=== PATIENT | female | born 1970 | race Hispanic/Latino ===

== ENCOUNTER 2017-03-12 10:37 | Day surgery (SDC) | payer OTHER, BC ==
[2017-03-12 10:50] VITALS: BMI 31.1
[2017-03-12 11:09] LABS: MEAN CELL VOLUME 90.1 fl (81.0-99.0); MEAN CORPUSCULAR HEMOGLOBIN 29.5 pg (27.0-31.0); MEAN CORPUSCULAR HGB CONC 32.7 g/dL (33.0-37.0); RED CELL DISTRIBUTION WIDTH 13.5 % (11.5-14.5); WHITE BLOOD COUNT 5.9 K/uL (4.8-10.8)
[2017-03-12] MEDS ORDERED: Strong Iodine Topical Sol. 5%-10% ONE (14:52)
[2017-03-12] MEDS ORDERED: Ferric Subsulfate Sol(60 mL) ONE (14:52)
[2017-03-12] MEDS ORDERED: Propofol 10 mg/ml Inj (20 ML) ONE (14:53)
[2017-03-12] MEDS ORDERED: Lidocaine 4% (Laryng-O-Jet) Kit MM ONE (14:53)
[2017-03-12] MEDS ORDERED: Succinylcholine 200 mg/10 ml Inj IV ONE (14:53)
[2017-03-12] MEDS ORDERED: Lactated Ringer's 1,000 ML IV ONE ×2 (15:13→17:15)
[2017-03-12] MEDS ORDERED: Midazolam 2 MG/2 ML VIAL ONE (15:16)
[2017-03-12] MEDS ORDERED: Dexamethasone 4 mg/1 ml ONE (15:24)
[2017-03-12] MEDS ORDERED: HYDROmorphone 0.5 mg/0.5 ml ISec IVP PRN (16:13)
[2017-03-12] MEDS ORDERED: Lactated Ringer's 1,000 ML IV SCH (16:15)
[2017-03-12 18:32] VITALS: BP 105/81; PULSE 71; RESP 18; TEMP 98; O2SAT 95
--- NOTE | 2017-04-16 17:33 | OP ---
PROCEDURE DATE: 03/12/2017 SURGEON: Reuben Vallejo MD PREOPERATIVE DIAGNOSIS: Uterine polyp versus fibroid. POSTOPERATIVE DIAGNOSIS: Uterine polyp versus fibroid. PROCEDURE PERFORMED: Hysteroscopic resection of endometrial polyp. TYPE OF ANESTHESIA: General endotracheal. COMPLICATIONS: None. INDICATION FOR THE PROCEDURE: This is a patient who is 46 years old with history of myomectomy. 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 This could have been either a polyp or a fibroid. She was referred to [facility] for treatment of the case. She was counseled prior to the surgery and taken to the OR. She signed the consent. DESCRIPTION OF PROCEDURE: After adequate anesthesia was obtained, the patient was placed in a dorsal lithotomy position. She was prepped and draped. The surgeons were gowned and gloved. At this point, attention was in the vaginal area where after emptying the bladder, anterior lip of the cervix was grasped. The cervix was dilated and a hysteroscope was inserted into the vagina. A resectoscope was then inserted. There appeared to be an intracavitary defect in the posterior wall of the uterus. This was identified utilizing the mechanical resectoscope. The area was completely excised until the cavity was completely clear. There appeared to be no other areas of malignancy or any other lesions in the uterus. At this point he was checked for hemostasis and appeared to be excellent. The instruments were removed. There appeared to be no bleeding. The tenaculum was removed. The patient was woken up and taken to recovery room in excellent condition. Reuben Vallejo MD
== END 2017-03-12 18:38 | disposition home or self-care (01) ==
LOC: H.OPSURG 10:37
PROVIDERS: ATTEND Obstetrics & Gynecology Reproductive Endocrinology
DX: N84.0 Polyp of corpus uteri (principal); E03.9 Hypothyroidism, unspecified
CPT/HCPCS: 36415; 58558; 85027; 86850; 86900; 88305; J0330; J0690; J1100; J1885; J2001; J2250; J2405; J2704; J2765; J3010; J7030; J7120

== ENCOUNTER 2017-09-29 08:42 | Day surgery (SDC) | payer OTHER, BC ==
[2017-09-28 10:24] VITALS: BMI 33.8
[2017-09-29 09:39] VITALS: RESP 18
[2017-09-29 09:58] LABS: HEMOGLOBIN 13.2 g/dL (12.0-16.0); MEAN CELL VOLUME 92.1 fl (81.0-99.0); MEAN CORPUSCULAR HEMOGLOBIN 31.1 pg (27.0-31.0); MEAN CORPUSCULAR HGB CONC 33.8 g/dL (33.0-37.0); RBC 4.24 Mil/uL (3.80-5.20); RED CELL DISTRIBUTION WIDTH 14.3 % (11.5-14.5)
[2017-09-29 10:00] LABS: WHITE BLOOD COUNT 9.4 K/uL (4.8-10.8)
[2017-09-29] MEDS ORDERED: Oxytocin 20 units in LR 0 ML IV ONE (10:43)
[2017-09-29] MEDS ORDERED: Propofol 10 mg/ml Inj (20 ML) ONE ×2 (11:14→11:15)
[2017-09-29] MEDS ORDERED: Lactated Ringer's 1,000 ML IV ONE (11:20)
[2017-09-29] MEDS ORDERED: Midazolam 2 MG/2 ML VIAL ONE (11:24)
[2017-09-29] MEDS ORDERED: Silver Nitrate Topical - Stick ONE (11:32)
[2017-09-29] MEDS ORDERED: Lactated Ringer's 1,000 ML IV SCH (12:00)
[2017-09-29 14:08] VITALS: BP 125/74; PULSE 74; TEMP 99.4; O2SAT 96
--- NOTE | 2017-10-02 17:25 | OP ---
PROCEDURE DATE: 09/29/2017 PREOPERATIVE DIAGNOSIS: Missed . POSTOPERATIVE DIAGNOSIS: Missed . PROCEDURE PERFORMED: Suction dilatation and curettage. SURGEON: Dr. Reuben Vallejo. TYPE OF ANESTHESIA: IV sedation. ANESTHESIA ADMINISTERED BY: Dr. Mo. COMPLICATIONS: None. SPECIMEN: Samples sent to pathology for both regular pathology and genetic testing with microarray. DESCRIPTION OF PROCEDURE: After adequate anesthesia was obtained, the patient was placed in dorsal lithotomy position with great care not to hyperextend her hips. She was prepped and draped. Surgeon got in glove and examination under anesthesia was performed revealing an 8-week size uterus. The and speculum was placed in the vagina and the anterior lip of the cervix was grasped. The cervix was gently dilated and an 8 suction curette was inserted into the uterine cavity. Suction was applied and abundant products of conception were obtained. Given the fact that products of conception came out very easily, there was no necessity to perform a sharp curetting. The tenaculum was removed. Cervix was dry. There was no leakage. The patient was then awaken up and taken to the recovery in excellent condition. Please note, the patient received prophylactic antibiotics. Reuben Vallejo MD
== END 2017-09-29 14:34 | disposition home or self-care (01) ==
LOC: H.OPSURG 08:42
PROVIDERS: ATTEND Obstetrics & Gynecology Reproductive Endocrinology
DX: O02.1 Missed abortion (principal); E03.9 Hypothyroidism, unspecified
CPT/HCPCS: 36415; 59820; 85027; 86850; 86900; 88305; J0690; J2001; J2210; J2250; J2270; J2704; J3010; J7030; J7120

== ENCOUNTER 2018-10-05 09:48 | Day surgery (SDC) | payer OTHER, BC ==
[2018-10-01 15:29] VITALS: BMI 32.9
[2018-10-05 10:42] LABS: EOS # 0.1 K/uL (0.0-0.7); EOS % 2.3 % (0.0-4.0); HEMOGLOBIN 14.6 g/dL (12.0-16.0); LYMPH # 1.3 K/uL (1.0-4.3); LYMPH % 28.3 % (20.0-40.0); MEAN CELL VOLUME 89.3 fl (81.0-99.0); MEAN CORPUSCULAR HEMOGLOBIN 30.1 pg (27.0-31.0); MEAN CORPUSCULAR HGB CONC 33.7 g/dL (33.0-37.0); MEAN PLATELET VOLUME 9.5 fl (7.2-11.7); MONO # 0.4 K/uL (0.0-0.8); MONO % 7.8 % (0.0-10.0); NEUT # 2.7 K/uL (1.8-7.0); NEUT % 60.6 % (50.0-75.0); RBC 4.87 Mil/uL (3.80-5.20); RED CELL DISTRIBUTION WIDTH 13.2 % (11.5-14.5); WHITE BLOOD COUNT 4.5 K/uL (4.8-10.8)
[2018-10-05] MEDS ORDERED: Lactated Ringer's 1,000 ML IV ONE (10:44)
[2018-10-05] MEDS ORDERED: Rocuronium 10 mg/ml (5 ml) ONE (11:11)
[2018-10-05] MEDS ORDERED: Midazolam 2 MG/2 ML VIAL ONE (11:11)
[2018-10-05] MEDS ORDERED: Lidocaine 4% (Laryng-O-Jet) Kit MM ONE (11:11)
[2018-10-05] MEDS ORDERED: Succinylcholine Chloride 20 mg/ml Syr (5 ml) IV ONE (11:11)
[2018-10-05] MEDS ORDERED: Propofol 10 mg/ml Inj (20 ML) ONE (11:11)
[2018-10-05] MEDS ORDERED: ePHEDrine 50 mg/ml Inj ONE (11:11)
[2018-10-05] MEDS ORDERED: Silver Nitrate Topical - Stick ONE (11:22)
[2018-10-05] MEDS ORDERED: Dexamethasone 4 mg/1 ml ONE (12:17)
[2018-10-05] MEDS ORDERED: HYDROmorphone 0.5 mg/0.5 ml ISec IVP PRN (12:30)
[2018-10-05] MEDS ORDERED: Lactated Ringer's 1,000 ML IV SCH (12:30)
[2018-10-05 14:10] VITALS: RESP 20; TEMP 98.4; O2SAT 95
[2018-10-05 14:48] VITALS: BP 99/57; PULSE 64
--- NOTE | 2018-10-06 08:38 | OP ---
PROCEDURE DATE: SURGEON: Reuben Vallejo MD AIR BRAKES INSPECTOR: Armando Tay MD ANESTHESIOLOGIST: Lauren Blevins MD TYPE OF ANESTHESIA: General endotracheal. PREOPERATIVE DIAGNOSES: 1. Incapacitating pelvic pain. 2. Incapacitating abdominal pain. 3. Abnormal uterine bleeding. 4. History of pelvic endometriosis. 5. History of previously failed medical and surgical therapy. 6. Gastrointestinal and genitourinary symptoms. 7. Rule out interstitial cystitis. 8. History of severe endometriosis and pelvic adhesions POSTOPERATIVE DIAGNOSES: 1. Incapacitating pelvic pain. 2. Incapacitating abdominal pain. 3. Abnormal uterine bleeding. 4. History of pelvic endometriosis. 5. History of previously failed medical and surgical therapy. 6. History of severe endometriosis and pelvic adhesions. 7. Gastrointestinal and genitourinary symptoms. 8. 9. Mild ureteral distention. PROCEDURES PERFORMED: 1. Exam under anesthesia. 2. Video assisted hysteroscopy. 3. Cystoscopy. 4. Bilateral ureteral catheterization and injection of IC-Green dye. 5. Robotic da Rita operative laparoscopy. 6. Treatment of endometriosis. 7. Excision of endometriosis. 8. Bilateral ureterolysis. 9. Bilateral ovariolysis. COMPLICATIONS: None. SAMPLES SENT: 1. Left Uterosacral l endometriosis. 2. Left periureteral endometriosis. 3. Right periureteral endometriosis. 4. Right uterosacral endometriosis. 5. Left and right ovarian fossa endometriosis. 6. Iliac endometriosis. 7. Posterior cervical endometriosis. 8. Rectal endometriosis, anterior. 9) Cul de sac endometriosis INDICATION FOR THE PROCEDURE AND CONSENT: The patient had a long history of pelvic pain, dysmenorrhea, dyspareunia, abdominal pain, and bladder pain. The patient had been thoroughly evaluated and counseled regarding the pros and cons of the procedure, the reasonable alternatives, and possible complications. She understood and accepted the risks involved. Literature was provided to the patient. The patient was understanding and given her history and per surgical exam, she was at high risk in an average patient. She accepted all the risks involved, and all the questions had been answered to her satisfaction. FINDINGS OF SURGERY: Genitalia: Normal external genitalia, cervix without lesion and polyps. Hysteroscopy: Hysteroscopy shows a clear uterine cavity with no polyps or masses noticed. Cystoscopy: The cystoscopy was performed to rule out endometriosis and also any interstitial cystitis and also injury. The bladder was normal with no evidence of stone, trigonitis, or cystitis. A positive jet flow was identified in both ureters. Laparoscopy: The upper abdomen appeared to be normal. Gallbladder was normal. Liver edges appeared to be normal. Ascending colon and transverse were normal. There was evidence of adhesions, fibrosis, and endometriosis of the rectovaginal and pelvic sidewalls. The appendix appeared to be . Both fallopian tubes appeared to be patent, although there was evidence of inflammation on the serosal surface of both fallopian tubes, and there was slight conglutination of both fimbriated ends although they both appeared to be functional. There was also evidence of mild hydroureters. DESCRIPTION OF THE PROCEDURE: Initiation of the case: After adequate anesthesia was obtained, the patient was placed in the dorsal lithotomy position, and with extreme care, placement of the patient with hyperextension and hyperflexing of the hips. At this point, the patient was prepped and draped. The surgeon was gowned and gloved. A timeout was taken according to the hospital procedure and the procedure was started. At this point, we performed cystoscopy, bilateral ureteral catheterization. A cystoscope was inserted into the bladder under direct visualization and the bladder was visualized. The bladder was free of lesions and tumors. There was no evidence of interstitial cystitis, and there was only mild amount of trigonitis. At this point, both ureters were identified and appeared to be in their normal anatomical position. At this point, utilizing an open 5-Kazakh open-ended catheter, the left ureter was catheterized all the way to the distal ureter, and 5 mL of IC-Green was injected into this ureter. Similarly, the contralateral ureter was catheterized all the way to the distal ureter, and 5 mL of IC-Green was injected into the distal ureter. At this point, the stents were removed, and the cystoscope was removed, and the 16-Kazakh Beaver was inserted into the bladder. At this point, we proceeded with a hysteroscopy. A speculum was placed into vagina, and the anterior lip of the cervix was grasped. The cervix was dilated, and a hysteroscope was inserted into the cavity. The cavity appeared to be of normal size with no evidence of polyps, cysts, adenomyosis, or fibroids. At this point, we proceeded with placement of a trocar and docking of the da Rita Xi robot. The surgeon was re-gowned and gloved, and open laparoscopy was performed by making incision in the umbilicus and the fascia was incised. The peritoneum was entered in a blunt fashion, and the cannula was inserted under direct visualization. The abdomen was insufflated, and under direct visualization, three additional ports were inserted in the left upper quadrant, left mid quadrant, and right upper quadrant. At this point, the da Rita Xi robot was brought into the field and docked, and the instruments were inserted under direct visualization. All this with extreme care not to injure the bowel or another area. As per dictation, the upper abdomen appeared to be normal with no evidence of any lesions. At this point, we proceeded with a left ureterolysis. The ureter appeared to be dilated and was clearly identified utilizing IC-Green fluorescent technology. Anesthesia was made in the peritoneum at the top of the pelvic brim, and the incision was then carried down all the way opening the peritoneum all the way down from the pelvic brim, all the way down to the ovarian fossa, extending the incision below the ovary. It was a progressive dissection where the ureter was progressively lateralized and peritoneum was medialized, thus freeing the ureter all the way down to the cross of the uterine vessels. After this was done, the ureter was freed and lateralized, and a larger peritoneum which had been opened, was excised, and sent to pathology. At this point, with the aid of very slow process, I was able to elevate the ovary and proceed with ovariolysis. At this point, we proceeded with a left ovariolysis. The left ovary was adherent to the posterior aspect of the uterus. It was gently dissected in a step by step way. It was peeled off, the ovarian fossa, andan area of extensive fibrosis and endometriosis was exposed. At this point, we proceeded with a right ureterolysis. The ureter was identified again utilizing fluorescent technology on the right hand side and retroperitoneal space was entered, and a full dissection was performed,entering the retroperitoneal space and dissecting the ureter, removing the ureter laterally and the peritoneum medially. A full dissection was performed all the way down to the ovarian fossa and the crossing of the uterine arteries. An area of peritoneum containing endometriosis was dissected and sent to Pathology. At this point, we proceeded with a right ovariolysis. The right ovary was adherent to the peritoneum. It was gently elevated progressively, and dissected off from the peritoneal area. All this done with extreme care to preserve vascularization to the ovary. At this point, we proceeded with treatment of endometriosis and excision of endometriosis. On the left hand side, fibrosis, especially in the left ovarian fossa was excised. In a very progressive step by step fashion, we dissected off fibrosis containing endometriosis and freed up the whole area. The ureters which had been lateralized. Areas of fibrosis and endometriosis were also identified in the posterior cul-de-sac and in the rectovaginal space which was also affected with endometriosis and fibrosis. At this point, we proceeded with the excision of perirectal endometriosis. The rectovaginal area had significant fibrosis and additional endometriosis was dissected from the posterior aspect of the uterus, and the rectovaginal space was entered at the level of the peritoneal reflection. All this done making sure that no damage to the rectum was performed. At this point, endometriosis was also excised from the right uterosacral area which also was affected by fibrosis and endometriosis. At this point, it was checked for hemostasis and appeared to be excellent. Both fallopian tubes were in good condition and patent. At this point we proceeded with destruction of inflammatory areas utilizing the j-plasma energy device. We checked for hemostasis and organ integrity and all was normal. At this point, the da Rita Xi robot was removed. The abdomen was desufflated, and the incisions were closed in layers with 0 PDS for the fascia and 4-0 Monocryl for the skin. At the end of the procedure, alltips and instrument counts were correct. The patient tolerated the procedure well and was taken to the recovery room in excellent condition. Yoni VIVEROS, Reuben GARCIA
== END 2018-10-05 15:00 | disposition home or self-care (01) ==
LOC: H.OPSURG 09:48
PROVIDERS: ATTEND Obstetrics & Gynecology Reproductive Endocrinology
DX: N80.0 Endometriosis of uterus (principal); R10.2 Pelvic and perineal pain; N73.6 Female pelvic peritoneal adhesions (postinfective); N80.1 Endometriosis of ovary; N80.3 Endometriosis of pelvic peritoneum; N80.5 Endometriosis of intestine; N93.9 Abnormal uterine and vaginal bleeding, unspecified; N94.6 Dysmenorrhea, unspecified
CPT/HCPCS: 36415; 58563; 58662; 85025; 86850; 86900; 88305; J0690; J1100; J2001; J2250; J2405; J2704; J3010; J7030; J7120